=== PATIENT | female | born 1965 | race Two or more races ===

== ENCOUNTER → 2021-10-05 | Day surgery (SDC) | payer OTHER ==
[2021-09-30 10:10] LABS: Urine Bacteria NONE SEEN /hpf (None Seen); Urine Blood Negative /uL (Negative); Urine Specific Gravity 1.003 (1.001-1.035); Urine WBC 1 /hpf (0 - 5)
[2021-09-30 10:20] LABS: Basophils # (auto) 0 10 ^3/uL (0-0.2); Basophils % (auto) 1.1 % (0.0-2.0); Eosinophils # (auto) 0.1 10 ^3/uL (0-0.8); Eosinophils % (auto) 1.8 % (0.0-7.0); Hematocrit 41.8 % (36.0-46.0); Lymphocytes # (auto) 1.9 10 ^3/uL (0.4-5.4); Lymphocytes % (auto) 44.5 % (10.0-50.0); Mean Corpuscular Hemoglobin 28.9 pg (28.0-32.0); Mean Corpuscular Hgb Conc. 33.6 g/dL (32.0-36.0); Mean Corpuscular Volume 86.2 fL (80.0-100.0); Monocytes # (auto) 0.3 10 ^3/uL (0-1.3); Monocytes % (auto) 6.2 % (0.0-12.0); Neutrophils % (auto) 46.4 % (37.0-80.0); Nucleated Red Blood Cells % 0.1 %; Red Blood Cells 4.86 10^6/uL (4.0-5.20); Red Cell Distribution Width 13.8 % (11.8-14.3); White Blood Cell 4.2 10^3/uL (4.4-10.8)
[2021-09-30 10:31] LABS: Potassium 4.2 mmol/L (3.5-5.1)
[2021-09-30 10:42] LABS: Albumin 3.8 g/dL (3.4-5.0); BUN/Creatinine Ratio 8.3; Bilirubin, Total 0.4 mg/dL (0.2-1.0); Calcium 9.2 mg/dL (8.5-10.1)
[2021-09-30 10:46] LABS: INR 1.01 (0.9-1.15); Partial Thromboplastin Time 27.6 sec (23.6-33.0)
[~2021-10-05] VITALS: Ht 157.5 cm; Wt 68.0 kg
[~2021-10-05] MED LIST: BUPIVACAINE HCL 50 ML ONE; DOXAPRAM HCL 20 MG/ML 20ML VIAL INJ IV ONE; DexAMETHasone SOD PHOS 10MG/1ML VIAL INJ ONE; GABA100C9 PO; HYDROmorphone HCL 2 MG/ML VL/or syr IV PRN; LEVO25TA6 PO; LOSA25TA38 PO; MELO-61 PO; MEPERIDINE HCL (25 MG/ML) 1ML VIAL ONE; METOCLOPRAMIDE HCL 5MG/ml INJ 2ml VIAL IV PRN; MIDAZOLAM HCL 2MG/2ML 2ml VIAL (1mg/ml) ONE; MORPHINE SULF PF 5 MG/10 ML VIAL ONE; MORPHINE SULFATE 4 MG/ML SYR/VIAL IV PRN; OMEP20TA PO; ONDANSETRON HCL 4 MG/2 ML VIAL ONE; PROPOFOL 10 MG/ML 20 ML IV ONE; RIZA5TAB35 OR; ROCURONIUM 10MG/ML 10ML VIAL IV ONE; SUCCINYLCHOLINE CHLORIDE 20 MG/ML 10ML VIAL IV ONE; ceFAZolin 1GM/50ML 100 ML IV ONE; fentaNYL CITRATE 100 MCG/2 ML VL ONE
[2021-10-05 09:15] VITALS: BP 135/67
== END | disposition home or self-care (01) ==
LOC: SUR 06:20
PROVIDERS: ATTEND Orthopaedic Surgery Sports Medicine
DX: S83.282A Other tear of lateral meniscus, current injury, left knee, initial encounter (principal); M94.262 Chondromalacia, left knee; M17.12 Unilateral primary osteoarthritis, left knee; I10 Essential (primary) hypertension; G43.909 Migraine, unspecified, not intractable, without status migrainosus; E03.9 Hypothyroidism, unspecified; E66.9 Obesity, unspecified; Z68.28 Body mass index [BMI] 28.0-28.9, adult; Z20.822 Contact with and (suspected) exposure to COVID-19; Z98.890 Other specified postprocedural states; Z79.899 Other long term (current) drug therapy; X58.XXXA Exposure to other specified factors, initial encounter; Y92.89 Other specified places as the place of occurrence of the external cause; Y93.89 Activity, other specified; Y99.8 Other external cause status
CPT/HCPCS: 29881; 36415; 80053; 81001; 85025; 85610; 85730; J0330; J0690; J1100; J2175; J2250; J2270; J2405; J2704; J3010; J3490; U0003

== ENCOUNTER 2024-09-06 09:35 | Emergency (ER) | payer OTHER ==
[~2024-09-06 09:35] MED LIST changes: -BUPIVACAINE HCL 50 ML ONE; -DOXAPRAM HCL 20 MG/ML 20ML VIAL INJ IV ONE; -DexAMETHasone SOD PHOS 10MG/1ML VIAL INJ ONE; +GABA-1308 PO; -GABA100C9 PO; -HYDROmorphone HCL 2 MG/ML VL/or syr IV PRN; +LOSA-533 PO; -LOSA25TA38 PO; -MEPERIDINE HCL (25 MG/ML) 1ML VIAL ONE; -METOCLOPRAMIDE HCL 5MG/ml INJ 2ml VIAL IV PRN; -MIDAZOLAM HCL 2MG/2ML 2ml VIAL (1mg/ml) ONE; -MORPHINE SULF PF 5 MG/10 ML VIAL ONE; -MORPHINE SULFATE 4 MG/ML SYR/VIAL IV PRN; -ONDANSETRON HCL 4 MG/2 ML VIAL ONE; -PROPOFOL 10 MG/ML 20 ML IV ONE; -ROCURONIUM 10MG/ML 10ML VIAL IV ONE; -SUCCINYLCHOLINE CHLORIDE 20 MG/ML 10ML VIAL IV ONE; -ceFAZolin 1GM/50ML 100 ML IV ONE; -fentaNYL CITRATE 100 MCG/2 ML VL ONE
== END 2024-09-06 09:40 | disposition left against medical advice (07) ==
LOC: ER 09:35
DX: R09.81 Nasal congestion (principal); Z53.21 Procedure and treatment not carried out due to patient leaving prior to being seen by health care provider